=== PATIENT | female | born 1975 | race Caucasian/White ===

== ENCOUNTER 2024-01-19 13:32 | Outpatient (AMB) | payer OTHER, SELFPAY ==
--- NOTE | 2024-01-19 13:34 | MHC.OFFVIS ---
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 Pt reports she developed migraine after she had a bad case of Covid-19 infection 3 years ago. She did not have hosp eval, but feels she should have. At this time, she also had a psychiatric breakdown w/ marked depression and SI. States mood is now stable on current tx- f/b psych and therapist. States prio to this time, she was healthy without mental health symptoms, and was not regularly taking any medications. She has had migraines since. PMH and ROS are notable for:? Neuro: Balance has anh worse since Covid infection 3 yrs ago Musculoskeletal disorders or injury: Cramps: has bad foot cramps at rest/night in the last few weeks. Denies usual neck or back pain. 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 Resp: Bedtime scratchy cough in last 1-2 months- lasts 5-10 minutes. Does vape. History of syncope- passed out a 2-3 times a few months ago- thinks was d/t her meds and getting up to quickly GI d/o: Constipation which she attributes to her meds. Uses dulculx prn. 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 Pertinent denials include: History of concussion/head injury, CV disease, Clotting or hematology d/o, Endocrine d/o, metabolic d/o, History of seizure or drop attacks Family history of migraine or other headache disorder Lifestyle considerations: Sleep routine: Usual bedtime: 9pm and wake-up time: 9am Sleep difficulties: Uses xanax and trazodone for sleep. was offered ambien but was worried about risk for parasomnias/sleep walking/eating. Caffeine use: 1 strong cups of strong cold brew per day Substance use: Tobacco- vapes, Marijuana- once a month, Alcohol- 2-3 times a week (1-2 drinks) when out to dinner. 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 Family planning: none Headache questionnaire:? Previous work-up: none Typical headache characteristics: Prodrome symptoms: None Aura: None Pain intensity: severe Location, quality, characteristics: Bilateral, holocranial pounding/pressure pain. Associated symptoms: photophobia, phonophobia, fatigue, cognitive difficulties, activity intolerance. Postdrome: Can last into 2nd day Triggers: hunger, poor sleep, wine. Time of day: morning or middle of the night (if she takes advil instead of Ubrelvy) Duration and Frequency: With Ubrelvy- 1 hour. Without tx- 1/2-2 days. Occurs 1-2 times per month (4 days per month). How does headache impact your life? Has to lay down and cannot do usual activities. Current acute medication use/interventions: Ubrelvy. Current preventative medication use: Bupropion. Non-pharmacological interventions: Ice when more severe. [facility] Medical History (Updated 01/19/24 @ 17:49 by ADRY Thomas) Generalized anxiety disorder Gene mutation Migraine Surgical History Hx of colonoscopy Family History Mother Osteoporosis Father Diabetes Paternal Grandmother Myocardial infarct Paternal Grandfather Myocardial infarct Maternal Grandmother Alzheimer dementia Social History Alcohol intake: current Patient Tobacco Use Status: Current everyday Tobacco user Physical Exam Vital Signs: Last Vital Signs Pulse 81 01/19/24 13:38 BP 106/70 01/19/24 13:38 Pulse Ox 98 01/19/24 13:38 Oxygen Delivery Method Room Air 01/19/24 13:38 BMI result Body Mass Index 20.7 Const Orientation/consciousness: patient oriented x3 Resp Effort & Inspection: normal respiratory effort and able to speak in complete sentences Neuro Other: Good cervical ROM w/o pain. Romberg- sways but does not lose balance- states balance has been worse since the Covid infection 3 yrs ago General: patient oriented x3 Cranial nerves: Yes CN's II-XII intact bilaterally Cognition (Neuro): normal cognition Gait exam (Neuro): Normal gait present Motor exam (neuro): 5/5 motor strength present throughout Deep tendon reflexes (DTR's): Right triceps reflex intensity grade: 2+, Left triceps reflex intensity grade: 2+, Rt Biceps (C5, C6): 2+, Left biceps reflex intensity grade: 2+, Right brachioradialis reflex intensity grade: 2+, Left brachioradialis reflex intensity grade: 2+, Right patellar reflex intensity grade: 2+ and Left patellar reflex intensity grade: 2+ Coordination: [id number] test normal and tandem gait normal Pupils: Normal pupillary reactivity/response: bilateral Psych Appearance: grossly normal Mental Status: mental status grossly normal Speech and movement: Normal speech and movement present Affect: normal affect Attitude: cooperative Thought process: Normal thought process present Assessment & Plan Assessment & Plan (1) Post-COVID chronic headache: Code(s): R51.9 - Headache, unspecified; U09.9 - Post COVID-19 condition, unspecified; G89.29 - Other chronic pain Category: Medical (2) Dizziness: Comment: balance difficulties Code(s): R42 - Dizziness and giddiness Category: Medical (3) Migraine without aura: Code(s): G43.009 - Migraine without aura, not intractable, without status migrainosus Category: Medical Plan Pt advised to undergo: Brain MRI w/wo- to assess for secondary etiologies of post-covid 19 headache, dizziness, and marked change in mood s/s. For overall headache management: Optimize good self-care, including but not limited to maintaining a healthy diet, adequate fluid intake, adequate sleep, and engaging in regular physical activity. Track headaches, especially after any treatment regimen changes. For acute headache treatment: Discussed importance of taking acute medications at the first sign of headache, however stressed importance of avoiding acute medication overuse.. Trila Rizatriptan 10mg prn. Continue Ibuprofen prn. Continue Ubrelvy 100mg prn, MR in 2 hrs (max 200mg/day), as pt has previously had good effect from use. May take w/ Rizatriptan or Ibuprofen. Potential adverse effects of triptans, including but not limited to nausea, fatigue, chest tightness/tingling (usually passes within a few minutes), medication overuse headaches. Previous acute migraine medication trials: Sumatriptan- ineffective. Acute migraine medication contraindications: None at this time For headache prevention medication: Preventative medications should be taken routinely as prescribed for best effect, it may take several weeks for full effect to take effect. Start Magnesium 400mg qhs- may help leg cramps as well. Continue Bupropion and lamotrigine- may be helping headache burden. Previous migraine prevention medication trials: None other Migraine prevention medication contraindications: Caution w/ TCAs/SSRIs d/t bipolar d/o. Future considerations- adjusting sleep medications, CBT-insomnia. Follow-up upon review of above and in clinic in 6 months or sooner prn. Orders: Orders MR head/brain wo/w con Today G89.29 - Other chronic pain, R42 - Dizziness and giddiness, R51.9 - Headache, unspecified, U09.9 - Post COVID-19 condition, unspecified Medications: New ubrogepant (Ubrelvy) take at onset of migraine, may repeat in 2hrs (may take w/ Ibuprofen) 50 - 100 mg (0.5 - 1 x 100 mg) PO ONCE 30 days PRN 16 tabs 3RF migraine headache G43.009 - Migraine without aura, not intractable, without status migrainosus rizatriptan max 2 tabs per day or 4 tabs per week 5 - 10 mg (0.5 - 1 x 10 mg) PO Q2H 21 days PRN 12 tabs 3RF migraine headache magnesium oxide may hold for loose stools 400 mg PO BEDTIME 30 days 30 tabs 6RF Coding Level of Care Code New Pt Level 4 (23630) Diagnoses Post-COVID chronic headache R51.9; U09.9; G89.29 Dizziness R42 Migraine without aura G43.009
[2024-01-19 13:38] VITALS: BP 106/70; PULSE 81; O2SAT 98; BMI 20.7
== END 2024-01-19 14:45 | disposition home or self-care (01) ==
PROVIDERS: PCP Internal Medicine; Referring Provider Internal Medicine; Visit Provider Nurse Practitioner Family
DX: R51.9 Headache, unspecified (principal); U09.9 Post COVID-19 condition, unspecified; G89.29 Other chronic pain; R42 Dizziness and giddiness; G43.009 Migraine without aura, not intractable, without status migrainosus
CPT/HCPCS: 99204

== ENCOUNTER → 2024-01-19 13:32 | Outpatient (BNVA) | payer OTHER, SELFPAY | PROVIDERS: PCP Internal Medicine; Visit Provider Nurse Practitioner Family | DX: G43.009 Migraine without aura, not intractable, without status migrainosus (principal); U09.9 Post COVID-19 condition, unspecified; G89.29 Other chronic pain; R42 Dizziness and giddiness | CPT/HCPCS: 99202 ==

== ENCOUNTER 2024-03-12 13:10 | Outpatient (REF) | payer OTHER, SELFPAY ==
--- NOTE | ~2024-03-12 | MR_ITS ---
EXAMINATION: MR BRAIN WITHOUT AND WITH CONTRAST CLINICAL INFORMATION: 48-year-old female, Headache, unspecified; migraines, for a few years. No recent injury. Syncopal episode with more remote head injury 3 times in one year. Symptoms starting after having COVID-19. COMPARISON: None available. TECHNIQUE: Multiplanar, multisequence MRI of the brain was obtained before and after the intravenous administration of 5.5 mL IV Gadavist. Standard sequences were utilized on a 1.5 Laurie Siemens magnet. FINDINGS: -There is no diffusion restriction. -There is no intracranial hemorrhage, acute infarction, mass effect, or edema. -Ventricles, sulci, and cisterns are normal in size and configuration for patient age. No shift of midline. -No abnormal hemosiderin deposition is identified. There are a few scattered punctate and minimally confluent foci of white matter T2 hyperintensity in the periventricular, subcortical, and hemispheric deep white matter, nonspecific. -There is no abnormal intra or extra-axial contrast enhancement. -Midline structures appear normally formed. The pituitary gland appears normal. -Posterior fossa structures appear normal. Cerebellar tonsils are appropriately located. -Major flow voids are preserved within the skull base. -The globes and orbital contents demonstrate no abnormalities. -Paranasal sinuses are clear bilaterally. -Nasal septum is essentially midline without spur. -The mastoids and tympanic cavities are normally aerated. -Extracranial soft tissues demonstrate no abnormalities. -No suspicious bone marrow changes are evident. Moderate degenerative arthritis right TM joint, and mild changes left TM joint. -Atlantoaxial joint is normal. MR/MR head/brain wo/w con IMPRESSION: 1. No evidence of intracranial hemorrhage, acute infarction, mass effect, edema, or abnormal intra or extra-axial enhancement. Normal examination of the brain. 2. Ancillary findings as discussed. Electronically signed by: Nima Moncada MD 04/12/2024 11:17 AM EDT
[2024-03-12] MEDS: gadobutroL 7.5 ML VIAL IVPUSH (13:56)
== END 2024-03-12 13:11 | disposition home or self-care (01) ==
LOC: HO.MRI 13:10
PROVIDERS: PCP Internal Medicine; Visit Provider Nurse Practitioner Family
DX: R51.9 Headache, unspecified (principal); U09.9 Post COVID-19 condition, unspecified; G89.29 Other chronic pain; R42 Dizziness and giddiness
CPT/HCPCS: 70553; A9585

== ENCOUNTER → 2024-03-12 13:15 | Outpatient (BNV) | payer OTHER, SELFPAY | PROVIDERS: PCP Internal Medicine; Visit Provider Radiology Diagnostic Radiology | DX: R51.9 Headache, unspecified (principal) | CPT/HCPCS: 70553 ==

== ENCOUNTER 2024-08-01 13:21 | Outpatient (AMB) | payer OTHER, SELFPAY ==
[2024-08-01 13:25] VITALS: BP 100/60; PULSE 82; O2SAT 97; BMI 19.4
--- NOTE | 2024-08-01 13:25 | A.OFFVIS_ITS ---
Vital Signs 08/01/24 13:25 Height 5 ft 7 in Weight 124 lb BMI 19.4 BP 100/60 Blood Pressure Location Lt brachial Position Sitting Pulse 82 Pulse Source Pulse Oximeter Pulse Oximetry (%) 97 Oxygen Delivery Method Room Air Intake Visit Reasons: 6mo. 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 She stopped drinking in the fall- and since she has been feeling better overall. Pt is currently on doxycycline for right 3rd finger skin infection. Pt reports she is 3 weeks post-op lipoma excision, and she asked that I take a look at it to make sure there are no signs of infection, as it is still quite swollen. Her brain MRI was reassuring, mild nonspecific white matter changes. Incidentally it also showed mild-moderate TMJ degenerative changes. Patient states she was planning to return to her dentist, to have her mouth guard be refitted. She denies current jaw pain. She reports overall, her migraines are stable- typically 1-2 migraine attacks per month, approximately 4 migraine days per month.. However, after she had 2 dental crowns placed, she had an uptick in headaches for 2 weeks afterwards. She states Ubrelvy is still very effective. Though she could not currently exercise much, she continues to be regularly physically active. She continues to be followed by Psychiatry and therapy. She wonders if she needs to continue on her current psychiatric medication regimen. She is doing complementary practices, such as cryotherapy, which she finds to be physically relaxing. 01/19/2024 Initial HPI: Pt reports she developed migraine after she had a bad case of Covid-19 infection 3 years ago. She did not have hosp eval, but feels she should have. At this time, she also had a psychiatric breakdown w/ marked depression and SI. States mood is now stable on current tx- f/b psych and therapist. States prior to this time, she was healthy without mental health symptoms, and was not regularly taking any medications. She has had migraines since. PMH and ROS are notable for:? Neuro: Balance has anh worse since Covid infection 3 yrs ago Musculoskeletal disorders or injury: Cramps: has bad foot cramps at rest/night in the last few weeks. Denies usual neck or back pain. 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 Resp: Bedtime scratchy cough in last 1-2 months- lasts 5-10 minutes. Does vape. History of syncope- passed out a 2-3 times a few months ago- thinks was d/t her meds and getting up to quickly GI d/o: Constipation which she attributes to her meds. Uses dulculx prn. 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 Pertinent denials include: History of concussion/head injury, CV disease, Clotting or hematology d/o, Endocrine d/o, metabolic d/o, History of seizure or drop attacks Family history of migraine or other headache disorder Lifestyle considerations: Sleep routine: Usual bedtime: 9pm and wake-up time: 9am Sleep difficulties: Uses xanax and trazodone for sleep. was offered ambien but was worried about risk for parasomnias/sleep walking/eating. Caffeine use: 1 strong cups of strong cold brew per day Substance use: Tobacco- vapes, Marijuana- once a month, Alcohol- 2-3 times a week (1-2 drinks) when out to dinner. 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 Family planning: none Headache questionnaire:? Previous work-up: none Typical headache characteristics: Prodrome symptoms: None Aura: None Pain intensity: severe Location, quality, characteristics: Bilateral, holocranial pounding/pressure pain. Associated symptoms: photophobia, phonophobia, fatigue, cognitive difficulties, activity intolerance. Postdrome: Can last into 2nd day Triggers: hunger, poor sleep, wine. Time of day: morning or middle of the night (if she takes advil instead of Ubrelvy) Duration and Frequency: With Ubrelvy- 1 hour. Without tx- 1/2-2 days. Occurs 1-2 times per month (4 days per month). How does headache impact your life? Has to lay down and cannot do usual activities. Current acute medication use/interventions: Ubrelvy. Current preventative medication use: Bupropion. Non-pharmacological interventions: Ice when more severe. [facility] Medical History (Updated 01/19/24 @ 17:49 by ADRY Thomas) Generalized anxiety disorder Gene mutation Migraine Surgical History (Updated 08/01/24 @ 13:40 by Anahy Alcantara CMA) History of surgery on arm Hx of colonoscopy Family History Mother Osteoporosis Father Diabetes Paternal Grandmother Myocardial infarct Paternal Grandfather Myocardial infarct Maternal Grandmother Alzheimer dementia Social History Alcohol intake: current Patient Tobacco Use Status: Current everyday Tobacco user Physical Exam Vital Signs: Last Vital Signs Pulse 82 08/01/24 13:25 BP 100/60 08/01/24 13:25 Pulse Ox 97 08/01/24 13:25 Oxygen Delivery Method Room Air 08/01/24 13:25 BMI result Body Mass Index 19.4 Const Orientation/consciousness: patient oriented x3 Resp Effort & Inspection: normal respiratory effort and able to speak in complete sentences Neuro Other: Right upper outer arm, well-approximated surgical incision. Areas swollen and ecchymotic without erythema, induration, warmth, exudate. General: patient oriented x3 Cranial nerves: Yes CN's II-XII intact bilaterally Cognition (Neuro): normal cognition Gait exam (Neuro): Normal gait present Motor exam (neuro): 5/5 motor strength present throughout Psych Appearance: grossly normal Mental Status: mental status grossly normal Speech and movement: Normal speech and movement present Affect: normal affect Assessment & Plan Assessment & Plan (1) Post-COVID chronic headache: Code(s): R51.9 - Headache, unspecified; U09.9 - Post COVID-19 condition, unspecified; G89.29 - Other chronic pain Category: Medical (2) Dizziness: Comment: balance difficulties Code(s): R42 - Dizziness and giddiness Category: Medical (3) Migraine without aura: Code(s): G43.009 - Migraine without aura, not intractable, without status migrainosus Category: Medical Plan Reviewed 03/12/2024 Brain MRI w/wo- Unremarkable with a few nonspecific few scattered punctate and minimally confluent foci of white matter T2 hyper intensity in the periventricular, subcortical, and hemispheric deep white matter, nonspecific, Moderate degenerative arthritis right TM joint, and mild changes left TM joint. Concur with mouth guard refitting. 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 For overall headache management: * Optimize good self-care, including but not limited to maintaining a healthy diet, adequate fluid intake, adequate sleep, and engaging in regular physical activity. * Track headaches. For acute headache treatment: Hold Rizatriptan 10mg prn- ? ineffective. Continue Ibuprofen prn. Continue Ubrelvy 100mg prn, MR in 2 hrs (max 200mg/day), as pt has previously had good effect from use. May take w/ Rizatriptan or Ibuprofen. Previous acute migraine medication trials: Sumatriptan- ineffective. Acute migraine medication contraindications: None at this time For headache prevention medication: Continue Magnesium 400mg qhs- may help leg cramps as well. Continue Bupropion and lamotrigine- may be helping headache burden. Previous migraine prevention medication trials: None other Migraine prevention medication contraindications: Caution w/ TCAs/SSRIs d/t bipolar d/o. Future considerations- adjusting sleep medications, CBT-insomnia. Pt to follow-up in 6 months or sooner prn. Coding Level of Care Code Est Pt Level 4 (03132) Diagnoses Post-COVID chronic headache R51.9; U09.9; G89.29 Dizziness R42 Migraine without aura G43.009
--- OUTSIDE RECORDS SUMMARY | 2024-08-01 14:15 | XMS_ITS | Clinical Summary ---
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 Name Role Phone Unavailable Primary Care Provider Unavailabl e Allergies No known active allergies Medications No known medications Immunizations Name Administration Dates Next Due Influenza, injectable, MDCK, quad, preservative free 03/04/2020 Social History Tobacco Use Types Packs/Day Years Used Date Smoking Tobacco: Never Smokeless Tobacco: Never Alcohol Use Standard Drinks/Week Comments Yes 0 (1 standard drink = 0.6 oz pur e alcohol) daily 4+ Comments Unknown Sex and Gender Information Value Date Recorded Sex Assigned at Not on file Legal Sex Female 6:44 PM EDT Gender Identity Not on file Sexual Orientation Not on file Last Filed Vital Signs Vital Sign Reading Time Taken Comments Blood Pressure 126/79 05/03/2020 6:30 AM EST Pulse 88 05/03/2020 6:30 AM EST Temperature 36.3 ??C (97.4 ??F) 05/02/2020 8:07 PM ES T Respiratory Rate 16 05/03/2020 6:30 AM EST Oxygen Saturation 99% 05/03/2020 6:30 AM EST Inhaled Oxygen Concentration - - Weight 61.3 kg (135 lb 2.3 oz) 05/02/2020 8:07 P M EST Height 170.2 cm (5' 7 ) 05/02/2020 8:07 PM EST Body Mass Index 21.17 05/02/2020 8:07 PM EST Plan of Treatment Health Maintenance Due Date Last Done Comments HIV screening 1988 Hepatitis C screening 1993 Cervical cancer screening 1996 Lipid disorder screening 2015 Colon cancer screening, Colonoscopy 2020 Diabetes screening 2020 Influenza vaccine 01/11/2024 03/04/2020 Covid-19 vaccine series ( - 2023-25 season) 2024 Tetanus adult (Td q 10,TDAP once) 03/07/2028 018 RSV Discussion (1 - 1-dose 7 5+ series) 2050 Meningococcal Vaccine Aged Out No sundeep zo eligible based on patient's age to complete this topic Pneumococcal Vaccine (2 - 49 years) Aged Out No longer eligible b ased on patient's age to complete this topic Insurance [id number] MEDICAID [id number] MEDICAID [id number] MEDICAID
--- OUTSIDE RECORDS SUMMARY | 2024-08-01 14:15 | XMS_ITS | Encounter Summary ---
Author Organization [facility] Address [address] [place] [address] Care Team Providers Care Fire Medic Name Role Phone Sofie Carr MD Primary Care Pr ovider Reason for Referral * Imaging (Routine) - Closed Specialty Diagnoses / Procedures Referred By Ирина bush Referred To Contact Radiology Diagnoses At high risk for breast cancer Procedures MR Breast wo and w Contrast bilat Sofie Carr MD [address] [place] [address] Phone: tel: fax: Radiology Department - [address] [address] Phone: tel: fax: Referral ID Status Reason Start Date Expiration Date Visits Re quested Visits Authorized [id number] Closed 06/24/2024 09/03/2024 1 1 Reason for Visit * Imaging (Routine) - Closed Specialty Diagnoses / Procedures Referred By Ирина bush Referred To Contact Radiology Diagnoses At high risk for breast cancer Procedures MR Breast wo and w Contrast Sofie Vuong MD [address] [place] [address] Phone: tel: fax: Radiology Department - [address] Phone: tel: fax: Referral ID Status Reason Start Date Expiration Date Visits Re quested Visits Authorized [id number] Closed 06/24/2024 09/03/2024 1 1 Encounter Details Date Type Department Care Team (Latest Contact Info) Description 07/05/2024 1:44 PM EST - 07/05/2024 11:59 PM EST Hospital Encounter Radiology Department - [address] [phone] At high risk for breast cancer Discharge Disposition: Home or Self Care Social History Tobacco Use Types Packs/Day Years Used Date Smoking Tobacco: Former Cigarettes 1 30 1 992 - 2021 Smokeless Tobacco: Never Alcohol Use Standard Drinks/Week Comments Not Currently 0 (1 standard drink = 0.6 oz pur e alcohol) Housing Instability Answer Date Recorde d Are you worried that in the next 2 months you may not have stable housing? No 06/24/2024 Food Access & Nutrition Answer Date Rec orded Do you have access to a vari ety of food including fruits and vegetables? Yes 06/24/2024 Health Literacy Answer Date Recorded How often do you need to hav e someone help you when you read instructions, pamphlets, or other written material from your doctor or pharmacy? Never 06/24/2024 Caregiver: How often do you need to have someone help you when you read instructions, pamphlets, or other written material from your doctor or pharmacy? Not on file 06/24/2024 Financial Risk Answer Date Recorded How hard is it for you to pa y for the very basics like food, housing, medical care, and air conditioning / heating? Patient declined 06/24/2024 Transportation Answer Date Recorded Has the lack of transportati on kept you from meetings, work, or from getting things needed for daily living? No Has the lack of transportati on kept you from medical appointments or from getting medications? No 06/24/2024 Social Isolation Answer Date Recorded How often do you feel lonely or isolated from th ose around you? Never 06/24/2024 Food Risk Answer Date Recorded Within the past 12 months we worried whether our food would run out before we got money to buy more. Never true 06/24/2024 Within the past 12 months th e food we bought just didn't last and we didn't have money to get more. Never true 06/24/2024 Dependent Care Answer Date Recorded Do you need help finding or paying for care for your loved ones. For example, vocational childcare teacher or elderly care for an older adult? No 06/24/2024 Education Answer Date Recorded Do you think completing more education or training, like finishing a GED, going to college, or learning a trade, would be helpful for you? No 06/24/2024 Employment and Income Answer Date Recor ded During the last four weeks, have you been actively looking for work? No 06/24/2024 Living Situation Answer Date Recorded What is your living situation? 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 04/02/2024 ALPRAZolam (XANAX) 0.5 mg tablet Take 1 tablet by mouth daily as needed for Anxiety for up to 28 days. 10/27/2020 buPROPion XL (WELLBUTRIN XL) 150 mg 24 hr tablet Take 1 Tablet by mouth every morning. cariprazine (Vraylar) 3 mg capsule TAKE ONE CAP BY MOUTH EVERY MORNING 02/11/2021 escitalopram (LEXAPRO) 10 mg tablet Take 1 Tablet by mouth daily. lamoTRIgine (LaMICtal) 100 mg tablet TAKE ONE TAB BY MOUTH EVERY MORNING AFTER 50 MG DOSING IS COMPLETE (DAY 29) 09/18/2020 magnesium oxide (MAG-OX) 400 mg (241.3 elemental magnesium) tablet TAKE 1 TABLET BY MOUTH AT BEDTIME MAY HOLD FOR LOOSE STOOLS 04/19/2024 Perdiem Overnight Relief 15 mg tablet TAKE 1 TABLET BY MOUTH EVERY DAY *NOT COV'D* 04/03/2024 rizatriptan (MAXALT) 10 mg tablet PLEASE SEE ATTACHED FOR DETAILED DIRECTIONS 01/19/2024 traZODone (DESYREL) 300 mg tablet Take 1 Tablet by mouth at bedtime. - Oral ubrogepant (UBRELVY) 100 mg tablet Take 1 Tablet by mouth as needed (migraine). May repeat x one 07/20/2023 documented as of this encounter Discharge Disposition Disposition Code Departure Means Destination Home or Self Care documented in this encounter Plan of Treatment Upcoming Encounters Date Type Department Care Team (Late st Contact Info) Description 08/07/2024 2:30 PM EST Office Visit General Surgery [facility] [address] [phone] Kamlesh Fernandez, DO [address] [address] 09/02/2024 11:00 AM EDT Office Visit [facility] Hematology Oncology [address] [place] [phone] Jamal Kruger MD [address] [place] [address] 12/17/2024 10:45 AM EDT Office Visit Adult Medicine [address] [phone] Laura Gilbert PA [address] [place] [address] documented as of this encounter Procedures Procedure Name Priority Date/Time Associated Diagnosis Comments MR BREAST WO AND W CONTRAST BILAT Routine 07/05/2024 2:39 PM EST At high risk for breast cancer documented in this encounter Results * MR Breast wo and w Contrast bilat (07/05/2024 2:39 PM EST) Anatomical Region Laterality Modality Breast Bilateral Magnetic Resonan ce 07/05/2024 6:34 PM EST Impressions 07/07/2024 3:06 PM EST Limited exam as described above. ??No MRI evidence of breast malignancy. BI-RADS CATEGORY: 2 - BENIGN RECOMMENDATION: MRI of bilateral breasts is recommended in 1 year. POS -[id number] -------- FINAL REPORT -------- Dictated By: Jessenia Murphy Dictated Date: 07/05/2024 18:34 ET Assigned Physician: Jessenia Murphy Reviewed and Electronically Signed By: Jessenia Murphy Signed Date: 07/07/2024 15:06 ET Workstation ID: [id number] Transcribed By: Self Edit Transcribed Date: 07/05/2024 19:03 ET Narrative 07/07/2024 3:06 PM EST EXAM: MRI breast HISTORY: Family history of breast cancer. ??Genetic predisposition-BRCA. COMPARISON: None CORRELATION: ??Mammography as recent as 05/02/2024 TECHNIQUE: Exam performed on a 1.5 Laurie high-field MRI scanner. ?? Multiplanar multiphasic MRI performed without and with contrast using department protocol. ??Exam is reviewed on CAD workstation with enhancement curves plotting, 3-D multi- planar reformatted and angiographic MIP images obtained. ??20 cc of Dotarem administered intravenously. Exam is reviewed on CAD workstation with enhancement curves plotting, 3-D multi-planar reformatted and angiographic MIP images obtained. FINDINGS: Signal artifacts in the bilateral areolar regions affecting the anterior breasts due to nipple jewelry which the patient was unable to remove for imaging. ??The signal artifacts limit the exam. Breast parenchyma is extremely dense with mild background parenchymal enhancement. RIGHT BREAST: ??No morphologically or kinetically suspicious finding. ??Few cysts with the largest measuring 1.2 cm in the posterior lower breast. LEFT BREAST: ??No morphologically or kinetically suspicious finding. ??Few subcentimeter cysts. OTHER: ??No lymphadenopathy identified in the partially imaged axillary regions. Procedure Note Jessenia Murphy MD - 07/07/2024 EXAM: MRI breast HISTORY: Family history of breast cancer. Genetic predisposition-BRCA. COMPARISON: None CORRELATION: Mammography as recent as 05/02/2024 TECHNIQUE: Exam performed on a 1.5 Laurie high-field MRI scanner.Multiplanar multiphasic MRI performed without and with contrast usingdepartment protocol. Exam is reviewed on CAD workstation with enhancementcurves plotting, 3-D multi-planar reformatted and angiographic MIP imagesobtained. 20 cc of Dotarem administered intravenously. Exam is reviewed on CAD workstation with enhancement curves plotting, [id number] reformatted and angiographic MIP images obtained. FINDINGS: Signal artifacts in the bilateral areolar regions affecting the anteriorbreasts due to nipple jewelry which the patient was unable to remove forimaging. The signal artifacts limit the exam. Breast parenchyma is extremely dense with mild background parenchymalenhancement. RIGHT BREAST: No morphologically or kinetically suspicious finding. Fewcysts with the largest measuring 1.2 cm in the posterior lower breast. LEFT BREAST: No morphologically or kinetically suspicious finding. Fewsubcentimeter cysts. OTHER: No lymphadenopathy identified in the partially imaged axillaryregions. IMPRESSION: Limited exam as described above. No MRI evidence of breast malignancy. BI-RADS CATEGORY: 2 - BENIGN RECOMMENDATION: MRI of bilateral breasts is recommended in 1 year. POS -[id number] -------- FINAL REPORT -------- Dictated By: Jessenia Murphy Dictated Date: 07/05/2024 18:34 ET Assigned Physician: Jessenia Murphy Reviewed and Electronically Signed By: Jessenia Murphy Signed Date: 07/07/2024 15:06 ET Workstation ID: [id number] Transcribed By: Self Edit Transcribed Date: 07/05/2024 19:03 ET Sofie Carr MD IMG MRI PROCEDUR ES Final Result documented in this encounter Visit Diagnoses Diagnosis At high risk for breast cancer documented in this encounter Administered Medications Inactive Administered Medications - up to 3 most recent administrations Medication Order MAR Action Action Date Dose Rate Site gadoterate meglumine (CLARISCAN, DOTAREM) injection 20 mL 20 mL, intravenous, Once in imaging, Starting on Mon07/05/24 at 1439, For 1 dose Given 07/05/2024 2:39 PM EST 20 mL documented in this encounter Orders Medications Ordered That Konstantin ht Not Have Been Administered Count Last Ordered Date First Ordered Date gadoterate meglumine (SAAD CAN, DOTAREM) injection 20 mL 1 07/05/2024 documented in this encounter Additional Health Concerns Assessment Noted Time PHQ-9 Depression Total Score: 2 06/24/19 3:00 PM EST documented as of this encounter Care Teams Fire Medic Relationship Specialty Start Date End Date Sofie Carr MD [address] [place] [address] PCP - General Internal Medicine 06/24/24 documented as of this encounter
--- OUTSIDE RECORDS SUMMARY | 2024-08-01 14:15 | XMS_ITS | Encounter Summary ---
Author Organization [facility] Address [address] [place] [address] Care Team Providers Care Mixed Crop Farmer Name Role Phone Sofie Carr MD Primary Care Pr ovider Reason for Visit * Consultation (Routine) - Closed Specialty Diagnoses / Procedures Referred By Ирина bush Referred To Contact General Surgery Diagnoses Lipoma of right upper extremity Sofie Carr MD [address] [place] [address] Phone: tel: fax: General [address] [address] Phone: tel: fax: Referral ID Status Reason Start Date Expiration Date V isits Requested Visits Authorized [id number] Closed Specialty Services Required 06/24/2024 06/24/2025 1 1 Encounter Details Date Type Department Care Team ([facility] st Contact Info) Description 07/04/2024 2:45 PM EST Consult General Surgery [address] [phone] Kamlesh Fernandez D, DO [address] [place], [place] [phone] Lipoma of right upper extremity (Primary Dx) Social History Tobacco Use Types Packs/Day Years Used Date Smoking Tobacco: Former Cigarettes 1 30 1 - 2021 Smokeless Tobacco: Never Alcohol Use [...] care for your loved ones. For example, child care director or elderly care for an older adult? [...] on file documented as of this encounter Last Filed Vital Signs Vital Sign Reading Time Taken Comments Blood Pressure 110/68 07/04/2024 2:59 PM EST Pulse 84 07/04/2024 2:59 PM EST Temperature - - Respiratory Rate - - Oxygen Saturation - - Inhaled Oxygen Concentration - - Weight 54.7 kg (120 lb 9.6 oz) 07/04/2024 2:59 P M EST Height 171.5 cm (5' 7.5 ) 07/04/2024 2:59 PM EST Body Mass Index 18.61 07/04/2024 2:59 PM EST documented in this encounter Progress Notes * Kamlesh Fernandez, DO - 07/04/2024 2:45 PM EST Images from the original note were not included. REFERRING PROVIDER: Sofie Carr MD REASON FOR VISIT: Right uppoer extremity lipoma HPI: This is a very pleasant 49 y.o.-year-old female past medical history significant for generalized anxiety disorder, bipolar, migraines who presents for consultation regarding a soft tissue mass of theright upper extremity. Patient reports that she has had it for a number of years. She denies any blood thinners she is not a smoker. ROS The following symptom list was reviewed with the patient: GENERAL: fevers, chills, sweats, change in weight, fatigue or malaise HEENT: changes in hearing or vision, nasal problems NECK: lumps, goiter, or significant neck swelling RESPIRATORY: cough, wheezing, shortness of breath, pleuritic chest pain CARDIOVASCULAR: chest pain, leg swelling or palpitations GI: abdominal discomfort, blood in stools or black stools : dysuria, frequency or incontinence MUSCULOSKELETAL: joint pain or swelling, back pain, or muscle pain SKIN: lesions, rash or itching PSYCH: sleep disturbance or depression HEMATOLOGY: prolonged bleeding, easy bruisability or swollen nodes ENDOCRINE: cold or heat intolerance, polyuria, polydipsia or goiter NEURO: persistent headache, syncope, seizures, weakness or numbness The patient reported the following as positive: As per HPI; right upper extremity lipoma PAST MEDICAL HISTORY: I personally reviewed the following past medical history with the patient and updated the records as appropriate. Patient Active Problem List Diagnosis Date Noted Current every day nicotine vaping 06/24/2024 Lipoma of right upper extremity 06/24/2024 Underweight (BMI < 18.5) 06/24/2024 Colon cancer high risk 06/24/2024 ADD (attention deficit disorder) Gene mutation 04/26/2024 Dysplastic nevus 03/18/2024 Bipolar affective disorder in remission (CMS/HCC) 05/08/2021 Macrocytosis without anemia 04/19/2021 Migraine 02/02/2021 Generalized anxiety disorder 07/07/2020 PAST SURGICAL HISTORY: I personally reviewed the following past surgical history with the patient and updated the records as appropriate. Past Surgical History: Procedure Laterality Date COLONOSCOPY PROCEDURE: HISTORICAL COLONOSCOPY COLONOSCOPY PROCEDURE: HISTORICAL COLONOSCOPY; COMMENT: Performed on March 26, 2021 OTHER SURGICAL HISTORY PROCEDURE: DENIES PREVIOUS SURGERY OTHER SURGICAL HISTORY Right 09/30/2020 PROCEDURE: SKIN TISSUE BIOPSY [facility] PATHOLOGY EXAM; COMMENT: excision with neg margins - dysplasticnevus right lower back SOCIAL HISTORY: I personally reviewed the following social history with the patient and updated the records as appropriate. Social History Tobacco Use Smoking status: Former Current packs/day: 0.00 Average packs/day: 1 pack/day for 30.0 years (30.0 ttl pk-yrs) Types: Cigarettes Start date: 1991 Quit date: 2021 Years since quittin.0 Smokeless tobacco: Never Substance Use Topics Alcohol use: Not Currently FAMILY HISTORY: I personally reviewed the following family medical history with the patient and updated the recordsas appropriate. Family History Problem Relation Name Age of Onset Osteoporosis Mother Diabetes Father Alzheimer's disease Maternal Grandmother Heart attack Paternal Grandmother Heart attack Paternal Grandfather Breast cancer Aunt Breast cancer Other mat aunt at age 59 ACTIVE MEDICATIONS: Medication list was reviewed/updated with the patient. No outpatient medications have been marked as taking for the 07/04/24 encounter (Consult) with Kamlesh Fernandez DO. ALLERGIES: Allergies Allergen Reactions Other Seasonal Allergies PHYSICAL EXAM: Visit Vitals BP 110/68 Pulse 84 Ht 1.715 m (67.5 ) Wt 54.7 kg (120 lb 9.6 oz) BMI 18.61 kg/m?? OB Status Having periods Smoking Status Former BSA 1.64 m?? GENERAL: Awake, alert, and in no acute distress. HEAD: Normocephalic, atraumatic. EYES: Pupils equal and round. Anicteric sclera. Conjunctiva normal. NECK: Thyroid midline and without goiter, nodule, tenderness, or mass. No appreciable adenopathy. CHEST: Non-tender. LUNGS: Clear to auscultation bilaterally without wheezing, rales, or rhonchi. CARDIAC: RRR, normal S1/S2, no appreciable murmur. ABDOMEN: Soft, non-tender, non-distended. No appreciable mass. No organomegaly. No ventral or umbilical hernia noted. EXTREMITIES: Right arm lipoma, 2 and half centimeters mobile nontender to palpation pretibial edema. BACK: Grossly normal range of motion. SKIN: Warm, no lesion or rash noted on visible skin. NEURO: Alert and oriented, appropriate. Motor and sensory grossly intact. LABS: No pertinent labs. IMAGING: ent imaging. ................................................................................ ............................................................. ASSESSMENT & PLAN: 1. Lipoma of right upper extremity Patient is a small right upper extremity lipoma she wishes to have removed. She reports that it does bother her. I explained excision of lipoma as well as risk procedure which include bleeding, infection, damage surrounding structures need for the procedure she understands these risks wished beforesurgery. It was a pleasure seeing Lidya Abarca at the Surgery [facility] today. The patient has been instructed to call with any additional questions or concerns. Thank you for this referral. Dr. Kamlesh Fernandez DO General Surgery [facility] A Member of [facility] W [phone] F [phone] [address] [place] [address] [email or web address] No ref. provider found documented in this encounter Plan of Treatment Upcoming Encounters Date Type Department Care Team ([facility] st Contact Info) Description 08/07/2024 2:30 PM EST Office Visit General Surgery [facility] [address] [phone] Kamlesh Fernandez DO [address] [address] 09/02/2024 11:00 AM EDT Office Visit [facility] Hematology Oncology [address] [place] [phone] Jamal Kruger MD [address] [place] [address] 12/17/2024 10:45 AM EDT Office Visit Adult Medicine [address] [phone] Laura Gilbert PA [address] [place] [address] documented as of this encounter Visit Diagnoses Diagnosis Lipoma of right upper extremity- Primary documented in this encounter Orders Outpatient Referral Count Last Ordered Date Fir st Ordered Date AMB REFERRAL TO GENERAL SURGERY 1 5 documented in this encounter Additional Health Concerns Assessment Noted Time PHQ-9 Depression Total Score: 2 06/24/19 25 3:00 PM EST documented as of this encounter Care Teams Mixed Crop Farmer Relationship Specialty Start Date End Date Sofie Carr MD [address] [place] [address] PCP - General Internal Medicine 06/24/24 documented as of this encounter
--- OUTSIDE RECORDS SUMMARY | 2024-08-01 14:15 | XMS_ITS | Encounter Summary ---
Author Organization [facility] Address [address] [place] [address] Care Team Providers Care Saw Handle Assembler Name Role Phone Sofie Carr MD Primary Care Pr ovider Reason for Visit * Reason Onset Date Comments Prior Authorization 07/17/2024 07/18/24 Dr. Power Fernandez Encounter Details Date Type Department Care Team (Late st Contact Info) Description 07/17/2024 Telephone General Surgery - [place] [address] [facility] [address] [place] [phone] Kamlesh Fernandez, DO [address] [place] [address] Prior Authorization (07/18/24 Dr. Kamlesh Fernandez) Social History Tobacco Use Types Packs/Day Years [...] on file documented as of this encounter Progress Notes * Ivet Doan - 07/17/2024 9:23 AM EST She is having in-office surgery with Dr. Fernandez on 07/18/14. She has [employer] for insurance. I went online and no authorization is required. documented in this encounter Plan of Treatment Upcoming Encounters Date Type Department Care Team (Late st Contact Info) Description 08/07/2024 2:30 PM EST Office Visit General Surgery [facility] [address] [phone] Kamlesh Fernandez, [address] [address] 09/02/2024 11:00 AM EDT Office Visit [facility] Hematology Oncology [address] [place] [address] Jamal Kruger MD [address] [place] [address] 12/17/2024 10:45 AM EDT Office Visit Adult Medicine [address] [phone] Laura Gilbert PA [address] [place] [address] documented as of this encounter Visit Diagnoses Not on filedocumented in this encounter Additional Health Concerns Assessment Noted Time PHQ-9 Depression Total Score: 2 06/24/19 3:00 PM EST documented as of this encounter Care Teams Saw Handle Assembler Relationship Specialty Start Date End Date Sofie Carr MD [address] [place] [address] PCP - General Internal Medicine 06/24/24 documented as of this encounter
--- OUTSIDE RECORDS SUMMARY | 2024-08-01 14:16 | XMS_ITS | Encounter Summary ---
Author Organization [facility] Address [address] [place] [address] Care Team Providers Care Electrical Controls Technician Name Role Phone Sofie Carr MD Primary Care Pr ovider Reason for Visit * Reason Comments Procedure RUE lipoma excision Encounter Details Date Type Department Care Team (Latest Contact Info) Description 07/18/2024 1:30 PM EST Procedure visit General Surgery - [place] [address] [facility] [address] [place] [phone] Kamlesh Fernandez, DO [address] [facility] [address] [place] [address] Lipoma of right upper extremity (Primary Dx) Social History Tobacco Use Types Packs/Day Years Used Date Smoking Tobacco: Every Day Cigarettes 07 11 Started: 1991; Last attempted to quit: 2021 Smokeless Tobacco: Never Tobacco Cessation:Ready to Q uit: Not Asked; Counseling Given: Not Answered Alcohol Use Standard Drinks/Week Comments Not Currently [...] for your loved ones. For example, child health associate or elderly care for an older adult? [...] Sign Reading Time Taken Comments Blood Pressure 116/70 07/18/2024 1:23 PM EST Pulse 69 07/18/2024 1:23 PM EST Temperature 36.9 ??C (98.4 ??F) 07/18/2024 1:23 PM ES T Respiratory Rate - - Oxygen Saturation - - Inhaled Oxygen Concentration - - Weight 53.5 kg (118 lb) 07/18/2024 1:23 PM EST Height 170.2 cm (5' 7 ) 07/18/2024 1:23 PM EST Body Mass Index 18.48 07/18/2024 1:23 PM EST documented in this encounter Plan of Treatment Upcoming Encounters Date Type Department Care Team (Late st Contact Info) Description 08/07/2024 2:30 PM EST Office Visit General Surgery [facility] [address] [facility] [address] [place] [phone] Kamlesh Fernandez, [address] [facility] [address] [place] [phone] 09/02/2024 11:00 AM EDT Office Visit [facility] Hematology Oncology [address] [place] [phone] Jamal Kruger MD [address] [place] [address] 12/17/2024 10:45 AM EDT Office Visit Adult Medicine [address] [phone] Laura Gilbert PA [address] [place] [address] documented as of this encounter Procedures Procedure Name Priority Date/Time Associated Diagnosis Comments TISSUE EXAM Routine 07/18/2024 1:48 PM EST Lipoma of right upper extremity documented in this encounter Results * Tissue exam (07/18/2024 1:48 PM EST) Final Diagnosis Soft tissue, right upper arm-excision: -LIPOMA 07/22/2024 1:45 PM EST [facility] Clinical Information Lipoma right upper extremity D17.21 Right upper extremity lipoma 07/22/2024 1:45 PM EST [facility] Gross Description A. Arm, Right, upper excision: Labeled arm R . Received in formalin is a 4.2 x 2.6 x 1.3 cm focally disrupted yellow lobular portion of adipose tissue. The cut surfaces are comprised of glistening yellow lobular adipose tissue with no areas of hemorrhage or necrosis. Billet Header sections are submitted in one cassette, four pieces. SHASHI 07/22/2024 1:45 PM [facility] Disclaimer Unless otherwise specified, all tissue is 10% NB formalin fixed and paraffin embedded. 07/22/2024 1:45 PM EST [facility] Tissue Structure of right upper limb / Unknown Non-blood Collection / Unknown 07/18/2024 1:48 PM EST 07/18/2024 1:50 PM EST Comment:Right upper extremit y lipoma us Kamlesh Fernandez DO LAB PATHOLOGY ORDERABLES Final Result [facility] [address] [place] [address], documented in this encounter Visit Diagnoses Diagnosis Lipoma of right upper extremity- Primary documented in this encounter Additional Health Concerns Assessment Noted Time PHQ-9 Depression Total Score: 2 06/24/19 25 3:00 PM EST documented as of this encounter Care Teams Electrical Controls Technician Relationship Specialty Start Date End Date Sofie Carr MD [address] [place] [id number] PCP - General Internal Medicine 06/24/24 documented as of this encounter
--- OUTSIDE RECORDS SUMMARY | 2024-08-01 14:16 | XMS_ITS | Clinical Summary ---
Author Organization [facility] [address] [facility] lding Address [address] [place] [address] Phone Care Team Providers Care Retail Field Supervisor Name Role Phone Sofie Carr MD Primary Care Pr ovider Allergies Active Allergy Reactions Criticality Noted Date Comments Other 10/21/2020 Seasonal Allergies Medications ALPRAZolam (XANAX) 0.5 mg tablet Take 1 tablet by mouth daily as needed for Anxiety for up to 28 days. 1 Active buPROPion XL (WELLBUTRIN XL) 150 mg 24 hr tablet Take 1 Tablet by mouth every morning. Active escitalopram (LEXAPRO) 10 mg tablet Take 1 Tablet by mouth daily. Active lamoTRIgine (LaMICtal) 100 mg tablet TAKE ONE TAB BY MOUTH EVERY MORNING AFTER 50 MG DOSING IS COMPLETE (DAY 29) 1 Active traZODone (DESYREL) 300 mg tablet Take 1 Tablet by mouth at bedtime. - Oral Active ubrogepant (UBRELVY) 100 mg tablet Take 1 Tablet by mouth as needed (migraine). May repeat x one 4 Active cariprazine (Vraylar) 3 mg capsule TAKE ONE CAP BY MOUTH EVERY MORNING 1 Active Adderall XR 20 mg 24 hr capsule Take 1 capsule (20 mg total) by mouth 1 (one) time each day. 4 Active rizatriptan (MAXALT) 10 mg tablet PLEASE SEE ATTACHED FOR DETAILED DIRECTIONS 4 Active magnesium oxide (MAG-OX) 400 mg (241.3 elemental magnesium) tablet TAKE 1 TABLET BY MOUTH AT BEDTIME MAY HOLD FOR LOOSE STOOLS 4 Active Perdiem Overnight Relief 15 mg tablet TAKE 1 TABLET BY MOUTH EVERY DAY *NOT COV'D* 4 Active Active Problems Problem Noted Date Diagnosed Date Current every day nicotine vaping 06/24/2024 Assessment & Plan (06/24/2024 4:44 PM EST): Cessation counseling provided Lipoma of right upper extremity 06/24/2024 Assessment & Plan (06/24/2024 4:44 PM EST): Orders: Ambulatory referral to General Surgery; Future Underweight (BMI < 18.5) 06/24/2024 Assessment & Plan (06/24/2024 4:44 PM EST): Advised to increase her protein consumption to help build muscle mass Orders: Thyroid stimulating hormone with reflex to free t4 and free t3; Future Colon cancer high risk 06/24/2024 Overview (06/24/2024): She had BRCA testing done in February 2021 which revealed positive moderate risk mutation APC: [id number] which increases her risk for colorectal cancer. Assessment & Plan (06/24/2024 4:44 PM EST): Up to date with colonoscopy Gene mutation 04/26/2024 Overview (06/24/2024): She had BRCA testing done in February 2021 which revealed positive moderate risk mutation APC: [id number] which increases her risk for colorectal cancer. Assessment & Plan (06/24/2024 4:44 PM EST): Dysplastic nevus 03/18/2024 Overview (03/18/2024): Severely Dysplastic nevus Bipolar affective disorder in remission 05/08/20 21 Macrocytosis without anemia 04/19/2021 Migraine 02/02/2021 Overview (04/26/2024): Ubrevly prescribed by psychiatry Ubrevly prescribed by psychiatry Generalized anxiety disorder 07/07/2020 ADD (attention deficit disorder) Overview (06/24/2024): DX:ADD (attention deficit disorder) Resolved Problems Problem Noted Date Diagnosed Date Resolved Date COVID-19 06/25/2020 06/24/2024 Overview (03/18/2024): 06/08/20 Encounters Date Type Department Care Team Description 07/18/2024 1:30 PM EST Procedure visit General Surgery [address] [phone] Kamlesh Fernandez, DO Lipoma of right upper extremity (Primary Dx) 07/17/2024 Telephone General [address] [phone] Kamlesh Fernandez, DO Prior Authorization (07/18/24 Dr. Kamlesh Fernandez) 07/05/2024 1:44 PM EST - 07/05/2024 11:59 PM EST Hospital Encounter Radiology Department - [address] [phone] At high risk for breast cancer Discharge Disposition: Home or Self Care 07/04/2024 2:45 PM EST Consult General Surgery [address] [phone] Kamlesh Fernandez, DO Lipoma of right upper extremity (Primary Dx) 06/24/2024 3:00 PM EST Office Visit Adult Medicine [address] [phone] Sofie Carr MD Annual physical exam (Primary Dx); At high risk for breast cancer; Mass of upper outer quadrant of left breast; Cold intolerance; Raynaud's phenomenon without gangrene; Underweight (BMI < 18.5); Screening for metabolic disorder; Lipoma of right upper extremity; Current every day nicotine vaping; Colon cancer high risk; Gene mutation 05/02/2024 9:37 AM EST - 05/02/2024 11:59 PM [facility] Hospital Encounter [facility] [address] [phone] Encounter for screening mammogram for breast cancer Discharge Disposition: Home or Self Care from Last 3 Months Immunizations Name Administration Dates Next Due Influenza Quadravalent, MDCK , 0.5ml, preservative free (Flucelvax) 6mo and older 04/25/2022 Influenza Quadravalent, MDCK , 0.5ml, with preservative (Flucelvax) 6mo and older 02/20/2023,03/09/2021 Influenza trivalent, with pr eservative (Fluzone; Afluria) 6mo and older 03/04/2020 Moderna (age 6mo & older) Bi valent, COVID-19, 0.5 mL or 0.25 mL dosage 04/25/2022 Moderna SARS-CoV-2 COVID-19, mRNA, LNP-S, preservative free 08/24/2020,07/27/2020 Tdap Tetanus diptheria acell ular pertussis (Boostrix; Adacel) 7yo and older 03/07/2018 Surgical History Surgery Date Site/Laterality Comments OTHER SURGICAL HISTORY PROCEDURE: DENIES PREVIOUS SURGERY OTHER SURGICAL HISTORY 09/30/2020 Right PROCEDURE: SKIN TISSUE BIOPSY SPCMN PATHOLOGY EXAM; COMMENT: excision with neg margins - dysplastic nevus right lower back COLONOSCOPY PROCEDURE: HISTORICAL COLONOSCOPY COLONOSCOPY PROCEDURE: HISTORICAL COLONOSCOPY; COMMENT: Performed on March 26, 2021 Medical History Medical History Date Comments ADD (attention deficit disorder) DX:ADD (attention deficit disorder) Dysplastic nevus DX:Dysplastic n evus Migraine 02/02/2021 DX:Migraine; COM MENT: Ubrevly prescribed by psychiatry Gene mutation DX:Gene mutation Anxiety state DX:Anxiety state Depressive disorder DX:Depressiv e disorder Covid-19 06/25/2020 06/08/20 Family History Medical History Relation Name Comments Breast cancer Aunt Diabetes Father Alzheimer's disease Maternal Grandmother Osteoporosis Mother Breast cancer Other mat aunt at age 59 Heart attack Paternal Grandfather Heart attack Paternal Grandmother Relation Name Status Comments Aunt Alive Brother Alive Father Alive Maternal Grandfather Maternal Grandmother Mother Alive Other mat aunt at age 59 Alive Paternal Grandfather Paternal Grandmother Social History Tobacco Use Types Packs/Day Years Used Date Smoking Tobacco: Every Day Cigarettes 1 30 Started: 1991; Last attempted to quit: 2021 [...] your loved ones. For example, child care sitter or elderly care for an older adult? [...] file Not on file Not on file Obstetrics History Para Term AB IAB SAB Ectopic Multiple Livin g Live Births 0 0 0 1 Last Filed Vital Signs Vital Sign Reading Time Taken Comments Blood Pressure 116/70 07/18/2024 1:23 PM EST Pulse 69 07/18/2024 1:23 PM EST Temperature 36.9 ??C (98.4 ??F) 07/18/2024 1:23 PM ES T Respiratory Rate 17 06/24/2024 3:23 PM EST Oxygen Saturation - - Inhaled Oxygen Concentration - - Weight 53.5 kg (118 lb) 07/18/2024 1:23 PM EST Height 170.2 cm (5' 7 ) 07/18/2024 1:23 PM EST Body Mass Index 18.48 07/18/2024 1:23 PM EST Plan of Treatment Upcoming Encounters Date Type Department Care Team (Late st Contact Info) Description 08/07/2024 2:30 PM EST Office Visit General Surgery - [place] [address] [phone] Kamlesh Fernandez, DO [address] [phone] 09/02/2024 11:00 AM EDT Office Visit [facility] Hematology Oncology [address] [place] [phone] Jamal Kruger MD [address] [place] [address] 12/17/2024 10:45 AM EDT Office Visit Adult Medicine [address] [phone] Laura Gilbert PA [address] [place] [address] Health Maintenance Due Date Last Done Comments Hepatitis B Vaccines (1 of 3 - 19+ 3-dose series) 1994 Pneumococcal Vaccine: Pediatrics (0 to 5 Years) and At-Risk Patients (6 to 64 Years) (1 of 2 - PCV) 1994 Depression Screening 06/24/2025 06/24/2024, 01/08/20 Social Influencers of Health Screening 06/24/2025 06/24/2024 Breast Cancer Screening 05/02/2026 05/02/20 24, 05/01/2023, 04/27/2022, Additional history exists Colorectal Cancer Screening: Colonoscopy 03/12/2027 DTaP,Tdap,and Td Vaccines (2 - Td or Tdap) 03/07/2028 03/07/2018 Cervical Cancer Screening: HPV 04/25/2028 04/25/2023 Cholesterol Screening (Lipid Panel) 06/28/2029 06/28/2024, 07/15/2020 HIV Screening Completed 03/07/2018 Hepatitis C Screening Completed 03/07/2018 COVID-19 Vaccine Completed 04/29/2024, , 04/02/2021, Additional history exists Influenza Vaccine Completed 04/29/2024, , 04/25/2022, Additional history exists HIB Vaccines Aged Out No longer eligi ble based on patient's age to complete this topic HPV Vaccines Aged Out No longer eligi ble based on patient's age to complete this topic Hepatitis A Vaccines Aged Out No long er eligible based on patient's age to complete this topic IPV Vaccines Aged Out No longer eligi ble based on patient's age to complete this topic MMR Vaccines Aged Out No longer eligi ble based on patient's age to complete this topic Meningococcal ACWY Vaccine Aged Out N o longer eligible based on patient's age to complete this topic Meningococcal B Vacine Aged Out No lo nger eligible based on patient's age to complete this topic RSV Immunization Patients Under 20 months Aged Out No longer eligible based on patient's age to complete this topic Varicella Vaccines Aged Out No longer eligible based on patient's age to complete this topic Procedures Procedure Name Priority Date/Time Associated Diagnosis Comments TISSUE EXAM Routine 07/18/2024 1:48 PM EST Lipoma of right upper extremity MR BREAST WO AND W CONTRAST BILAT Routine 07/05/2024 2:39 PM EST At high risk for breast cancer CBC WITH AUTO DIFFERENTIAL Routine 06/28/2024 10:33 AM EST Cold intolerance IRON AND TIBC Routine 06/28/2024 10:33 AM EST Cold intolerance FERRITIN Routine 06/28/2024 10:33 AM EST Cold intolerance VITAMIN B12 Routine 06/28/2024 10:33 AM EST Cold intolerance THYROID STIMULATING HORMONE WITH REFLEX TO FREE T4 AND FREE T3 Routine 06/28/2024 10:33 AM EST Cold intolerance Underweight (BMI < 18.5) COMPREHENSIVE METABOLIC PANEL Routine 06/28/2024 10:33 AM EST Cold intolerance CBC AND DIFFERENTIAL Routine 06/28/2024 10:33 AM EST Cold intolerance LIPID PANEL WITH REFLEX TO DIRECT LDL Routine 06/28/2024 10:33 AM EST Screening for metabolic disorder MG MAMMO DIGITAL SCREENING W SHOAIB BILAT Routine 05/02/2024 10:13 AM EST Encounter for screening mammogram for breast cancer HM DEPRESSION SCREENING Routine 01/08/2024 HM HPV Routine 04/25/2023 HEPATITIS C SCREENING Routine 03/07/2018 HIV SCREENING Routine 03/07/2018 from Last 3 Months or Most Recently Relevant to Health Maintenance Results * Tissue exam (07/18/2024 1:48 PM EST) Final Diagnosis Soft tissue, right upper arm-excision: -LIPOMA 07/22/2024 1:45 PM EST [facility] Clinical Information Lipoma right upper extremity D17.21 Right upper extremity lipoma 07/22/2024 1:45 PM EST [facility] Gross Description A. Arm, Right, upper excision: Labeled arm R . Received in formalin is a 4.2 x 2.6 x 1.3 cm focally disrupted yellow lobular portion of adipose tissue. The cut surfaces are comprised of glistening yellow lobular adipose tissue with no areas of hemorrhage or necrosis. Vending Route Driver sections are submitted in one cassette, four pieces. SHASHI 07/22/2024 1:45 PM EST [facility] Disclaimer Unless otherwise specified, all tissue is 10% NB formalin fixed and paraffin embedded. 07/22/2024 1:45 PM EST [facility] Tissue Structure of right upper limb / Unknown Non-blood Collection / Unknown 07/18/2024 1:48 PM EST 07/18/2024 1:50 PM EST Comment:Right upper extremit y lipoma us Kamlesh Fernandez DO LAB PATHOLOGY ORDERABLES Final Result [facility] [address] [place] [address], [place] [phone] * MR Breast wo and w Contrast bilat (07/05/2024 2:39 PM EST) Anatomical Region Laterality Modality Breast Bilateral Magnetic Resonan ce 07/05/2024 6:34 PM EST Impressions 07/07/2024 3:06 PM EST Limited exam as described above. ??No MRI evidence of breast malignancy. BI-RADS CATEGORY: 2 - BENIGN RECOMMENDATION: MRI of bilateral breasts is recommended in 1 year. POS -[id number] -------- FINAL REPORT -------- Dictated By: Jessenia Murphy Dictated Date: 07/05/2024 18:34 ET Assigned Physician: Jessenia Murphy Reviewed and Electronically Signed By: Jessenia Murphy Signed Date: 07/07/2024 15:06 ET Workstation ID: [id number] Transcribed By: Self Edit Transcribed Date: 07/05/2024 [...] on CAD workstation with enhancement curves plotting, [id number] reformatted and angiographic MIP images obtained. FINDINGS: [...] breasts is recommended in 1 year. POS -[id number] -------- FINAL REPORT -------- Dictated By: Jessenia Murphy Dictated Date: 07/05/2024 18:34 ET Assigned Physician: Jessenia Murphy Reviewed and Electronically Signed By: Jessenia Murphy Signed Date: 07/07/2024 15:06 ET Workstation ID: [id number] Transcribed By: Self Edit Transcribed Date: 07/05/2024 19:03 ET us Sofie Carr MD IMShelley MRI PROCEDUR ES Final Result * Thyroid stimulating hormone with reflex to free t4 and free t3 (06/28/2024 10:33 AM EST) TSH 2.76 0.40 - 4.00 mcIU/mL LAB CHEMISTRY METHOD 06/28/2024 2:11 PM EST [facility] Blood Venous blood specimen / Unknown Venipuncture / Unknown 06/28/2024 10:33 AM EST 06/28/2024 10:33 AM EST Sofie Carr MD LAB BLOOD ORDERA BLES Final Result [facility] [address] [place] [address], [place] [phone] * (ABNORMAL) Lipid panel with reflex to direct LDL (06/28/2024 10:33 AM EST) Cholesterol 198 0 - 200 mg/dL LAB CHEMISTRY METHOD 06/28/2024 3:56 PM EST [facility] Triglycerides 63 0 - 150 mg/dL LAB CHEMISTRY METHOD 06/28/2024 3:56 PM EST [facility] HDL 81 >=40 mg/dL LAB CHEMISTRY METHOD 06/28/2024 3:56 PM EST [facility] LDL Calculated 104(H) 0 - 100 mg/dL LAB CHEMISTRY METHOD 06/28/2024 3:56 PM EST [facility] VLDL Cholesterol Gordo 12.6 mg/dL LAB CHEMISTRY METHOD 06/28/2024 3:56 PM EST [facility] Non HDL Chol. (LDL+VLDL) 117 <145 mg/dL LAB CHEMISTRY METHOD 06/28/2024 3:56 PM EST [facility] Chol/HDL Ratio 2.4 0.0 - 4.4 LAB CHEMISTRY METHOD 06/28/2024 3:56 PM [facility] Blood Venous blood specimen / Unknown Venipuncture / Unknown 06/28/2024 10:33 AM EST 06/28/2024 10:33 AM EST Sofie Carr MD LAB BLOOD ORDERA BLES Final Result [facility] [address] [place] [address], [place] [phone] * (ABNORMAL) CBC auto differential (06/28/2024 10:33 AM EST) [facility] Signature WBC 3.5(L) 4.8 - 10.8 K/mcL LAB HEMETOLOGY METHOD 06/28/2024 12:32 PM [facility] RBC 3.80 3.80 - 4.80 M/mcL LAB HEMETOLOGY METHOD 06/28/2024 12:32 PM [facility] Hemoglobin 12.2 11.5 - 16.0 g/dL LAB HEMETOLOGY METHOD 06/28/2024 12:32 PM [facility] Hematocrit 36.9 35.0 - 47.0 % LAB HEMETOLOGY METHOD 06/28/2024 12:32 PM [facility] MCV 97.4 79.0 - 98.0 FL LAB HEMETOLOGY METHOD 06/28/2024 12:32 PM [facility] MCH 32.2(H) 27.0 - 32.0 pcg LAB HEMETOLOGY METHOD 06/28/2024 12:32 PM [facility] MCHC 33.1 32.0 - 37.0 g/dL LAB HEMETOLOGY METHOD 06/28/2024 12:32 PM [facility] RDW 12.3 11.0 - 15.0 % LAB HEMETOLOGY METHOD 06/28/2024 12:32 PM [facility] Platelets 215 130 - 400 K/mcL LAB HEMETOLOGY METHOD 06/28/2024 12:32 PM [facility] MPV 10.1 7.0 - 11.0 FL LAB HEMETOLOGY METHOD 06/28/2024 12:32 PM [facility] NRBC 0.0 <1.0 % LAB HEMETOLOGY METHOD 06/28/2024 12:32 PM [facility] NRBC Absolute 0.00 <0.10 K/mcL LAB HEMETOLOGY METHOD 06/28/2024 12:32 PM [facility] Neutrophils Relative 28.4 % LAB HEMETOLOGY METHOD 06/28/2024 12:32 PM [facility] Lymphocytes Relative 47.7 % LAB HEMETOLOGY METHOD 06/28/2024 12:32 PM [facility] Monocytes Relative 10.1 % LAB HEMETOLOGY METHOD 06/28/2024 12:32 PM [facility] Eosinophils Relative 11.8 % LAB HEMETOLOGY METHOD 06/28/2024 12:32 PM [facility] Basophils Relative 1.7 % LAB HEMETOLOGY METHOD 06/28/2024 12:32 PM [facility] Immature Granulocytes Relative 0.3 % LAB HEMETOLOGY METHOD 06/28/2024 12:32 PM [facility] Neutrophils Absolute 0.98(L) 1.50 - 7.00 K/mcL LAB HEMETOLOGY METHOD 06/28/2024 12:32 PM [facility] Lymphocytes Absolute 1.65 1.00 - 5.00 K/mcL LAB HEMETOLOGY METHOD 06/28/2024 12:32 PM [facility] Monocytes Absolute 0.35 0.20 - 1.00 K/mcL LAB HEMETOLOGY METHOD 06/28/2024 12:32 PM [facility] Eosinophils Absolute 0.41 0.00 - 0.50 K/mcL LAB HEMETOLOGY METHOD 06/28/2024 12:32 PM [facility] Basophils Absolute 0.06 0.00 - 0.20 K/mcL LAB HEMETOLOGY METHOD 06/28/2024 12:32 PM [facility] Immature Granulocytes Absolute 0.01 0.00 - 0.03 K/mcL LAB HEMETOLOGY METHOD 06/28/2024 12:32 PM [facility] Blood Venous blood specimen / Unknown Venipuncture / Unknown 06/28/2024 10:33 AM EST 06/28/2024 10:33 AM EST us Sofie Carr MD LAB BLOOD ORDERA BLES Final Result Performing Organization Address [facility]/ZIP Co de Phone Number [facility] [address] [place] [address], [place] [phone] * Iron and TIBC (06/28/2024 10:33 AM EST) Iron 102 40 - 150 mcg/dL LAB CHEMISTRY METHOD 06/28/2024 3:42 PM EST [facility] TIBC 258 250 - 450 mcg/dL LAB CHEMISTRY METHOD 06/28/2024 3:42 PM EST [facility] Iron Saturation 40 15 - 50 % LAB CHEMISTRY METHOD 06/28/2024 3:42 PM EST [facility] Blood Venous blood specimen / Unknown Venipuncture / Unknown 06/28/2024 10:33 AM EST 06/28/2024 10:33 AM EST us Sofie Carr MD LAB BLOOD ORDERA BLES Final Result Performing Organization Address [facility]/ZIP Co de Phone Number [facility] [address] [place] [address], [place] [phone] * Ferritin (06/28/2024 10:33 AM EST) Ferritin 71 8 - 252 ng/mL LAB CHEMISTRY METHOD 06/28/2024 3:42 PM EST [facility] Blood Venous blood specimen / Unknown Venipuncture / Unknown 06/28/2024 10:33 AM EST 06/28/2024 10:33 AM EST us Sofie Carr MD LAB BLOOD ORDERA BLES Final Result [facility] [address] [place] [address], [place] [phone] * Vitamin B12 (06/28/2024 10:33 AM EST) Pathologist [facility] Vitamin B-12 736 250 - 900 pcg/mL LAB CHEMISTRY METHOD 06/28/2024 3:42 PM [facility] Blood Venous blood specimen / Unknown Venipuncture / Unknown 06/28/2024 10:33 AM EST 06/28/2024 10:33 AM EST Sofie Carr MD LAB BLOOD ORDERA BLES Final Result Performing Organization Address City/[facility]/ZIP Co de Phone Number [facility] [address] [place] [address], [place] [phone] * (ABNORMAL) Comprehensive metabolic panel (06/28/2024 10:33 AM EST) [facility] Sodium 139 133 - 145 mmol/L LAB CHEMISTRY METHOD 06/28/2024 3:42 PM [facility] Potassium 4.1 3.5 - 5.5 mmol/L LAB CHEMISTRY METHOD 06/28/2024 3:42 PM [facility] Chloride 105 96 - 110 mmol/L LAB CHEMISTRY METHOD 06/28/2024 3:42 PM [facility] CO2 28 21 - 32 mmol/L LAB CHEMISTRY METHOD 06/28/2024 3:42 PM [facility] Anion Gap 6 3 - 11 LAB CHEMISTRY METHOD 06/28/2024 3:42 PM [facility] Glucose 92 70 - 100 mg/dL LAB CHEMISTRY METHOD 06/28/2024 3:42 PM [facility] BUN 20 5 - 25 mg/dL LAB CHEMISTRY METHOD 06/28/2024 3:42 PM [facility] Creatinine 0.91 0.50 - 1.10 mg/dL LAB CHEMISTRY METHOD 06/28/2024 3:42 PM [facility] eGFR 77 >=60 mL/min/1. 73m2 LAB CHEMISTRY METHOD 06/28/2024 3:42 PM [facility] Comment:Calculation based on the??Chronic Kidney Disease Epidemiology Collaboration (CKD-EPI) equation refit??without adjustment for race. BUN/Creatinine Ratio 22.0 LAB CHEMISTRY METHOD 06/28/2024 3:42 PM [facility] Calcium 9.4 8.5 - 10.5 mg/dL LAB CHEMISTRY METHOD 06/28/2024 3:42 PM [facility] AST (SGOT) 17 10 - 42 unit/L LAB CHEMISTRY METHOD 06/28/2024 3:42 PM [facility] ALT (SGPT) 25 10 - 60 unit/L LAB CHEMISTRY METHOD 06/28/2024 3:42 PM [facility] Alkaline Phosphatase 38(L) 42 - 121 unit/L LAB CHEMISTRY METHOD 06/28/2024 3:42 PM [facility] Total Protein 6.7 6.0 - 8.0 g/dL LAB CHEMISTRY METHOD 06/28/2024 3:42 PM [facility] Albumin 4.3 3.2 - 5.0 g/dL LAB CHEMISTRY METHOD 06/28/2024 3:42 PM [facility] Total Bilirubin 0.3 0.0 - 1.4 mg/dL LAB CHEMISTRY METHOD 06/28/2024 3:42 PM [facility] Blood Venous blood specimen / Unknown Venipuncture / Unknown 06/28/2024 10:33 AM EST 06/28/2024 10:33 AM EST Sofie Carr MD LAB BLOOD ORDERA BLES Final Result [facility] [address] [place] [address], * MG Mammo Digital Screening w Shoaib bilat (05/02/2024 10:13 AM EST) Anatomical Region Laterality Modality Breast Bilateral Mammography 05/02/2024 12:3 7 PM EST Impressions 05/02/2024 12:40 PM EST No mammographic evidence of malignancy. ?? No suspicious interval change. A negative mammogram in the presence of a clinically suspicious palpable abnormality does not preclude the possibility of malignancy or alter the indications for biopsy. ASSESSMENT: ?? BI-RADS 1: NEGATIVE RECOMMENDATION(S): 1: Routine screening mammogram BILATERAL in 1 year. Extremely dense tissue. ??The patient should discuss the potential benefits of supplementary screening breast ultrasound with her provider. -------- FINAL REPORT -------- Dictated By: Arturo Connors Dictated Date: 05/02/2024 12:37 ET Assigned Physician: Arturo Connors Reviewed and Electronically Signed By: Arturo Connors Signed Date: 05/02/2024 12:40 ET Workstation ID: [id number] Transcribed By: Self Edit Transcribed Date: 05/02/2024 12:37 ET Narrative 05/02/2024 12:40 PM EST EXAM: ??SCREENING MAMMOGRAPHY, BILATERAL HISTORY: ??SCREENING. ??Family history of breast cancer, aunt COMPARISON: ??05/01/2023, 04/27/2022, 04/23/2021 TECHNIQUE: Synthesized CC and MLO projections of each breast. ??Tomosynthesis of each breast in the CC and MLO projections. ADDITIONAL IMAGING: None Computer-aided detection was employed with the iCAD ??profound AI 3-D. TISSUE DENSITY: The breasts are extremely dense, which lowers the sensitivity of mammography. (BI-RADS category D) FINDINGS: There is nipple jewelry bilaterally. RIGHT BREAST: No suspicious mass. No suspicious calcification. No distortion. ?? No additional suspicious right breast findings LEFT BREAST: No suspicious mass. No suspicious calcification. No distortion. ?? No additional suspicious left breast findings Procedure Note Arturo Connors MD - 05/02/2024 EXAM: SCREENING MAMMOGRAPHY, BILATERAL HISTORY: SCREENING. Family history of breast cancer, aunt COMPARISON: 05/01/2023, 04/27/2022, 04/23/2021 TECHNIQUE: Synthesized CC and MLO projections of each breast.Tomosynthesis of each breast in the CC and MLO projections. ADDITIONAL IMAGING: None Computer-aided detection was employed with the [employer] AI 3-D. TISSUE DENSITY: The breasts are extremely dense, which lowers thesensitivity of mammography. (BI-RADS category D) FINDINGS: There is nipple jewelry bilaterally. RIGHT BREAST: No suspicious mass. No suspicious calcification. No distortion. Noadditional suspicious right breast findings LEFT BREAST: No suspicious mass. No suspicious calcification. No distortion. Noadditional suspicious left breast findings IMPRESSION: No mammographic evidence of malignancy. No suspicious interval change. A negative mammogram in the presence of a clinically suspicious palpableabnormality does not preclude the possibility of malignancy or alter theindications for biopsy. ASSESSMENT: BI-RADS 1: NEGATIVE RECOMMENDATION(S): 1: Routine screening mammogram BILATERAL in 1 year. Extremely dense tissue. The patient should discuss the potential benefitsof supplementary screening breast ultrasound with her provider. -------- FINAL REPORT -------- Dictated By: Arturo Connors Dictated Date: 05/02/2024 12:37 ET Assigned Physician: Arturo Connors Reviewed and Electronically Signed By: Arturo Connors Signed Date: 05/02/2024 12:40 ET Workstation ID: [id number] Transcribed By: Self Edit Transcribed Date: 05/02/2024 12:37 ET Mine [facility] BI PROCEDURES Final Re sult * Depression Screening (01/08/2024) Pathologist [facility] Depression Screening Abstracted Historical Provider HEALTH MAINTENANCE Final Result * Cervical Cancer Screening: HPV (04/25/2023) Pathologist [facility] Cervical Cancer Screening: HPV Negative, Abstracted Historical Provider HEALTH MAINTENANCE Final Result * HIV Screening (03/07/2018) HIV Screening Abstracted Historical Provider HEALTH MAINTENANCE Final Result * Hepatitis C Screening (03/07/2018) Hepatitis C Screening Abstracted Historical Provider HEALTH MAINTENANCE Final Result from Last 3 Months or Most Recently Relevant to Health Maintenance Insurance [facility] [phone] Care Teams Retail Field Supervisor Relationship Specialty Start Date End Date Sofie Carr MD [address] [place] [id number] PCP - General Internal Medicine 06/24/24
--- OUTSIDE RECORDS SUMMARY | 2024-08-01 14:16 | XMS_ITS | Clinical Summary ---
Author Organization Formerly [facility] Address [address] [place] [address] Care Team Providers Care Director Client Name Role Phone Unavailable Primary Care Provider Unavailabl e Allergies No known active allergies Medications No known medications Social History Tobacco Use Types Packs/Day Years Used Date Smoking Tobacco: Every Day Smokeless Tobacco: Never Sex and Gender Information Value Date Recorded Sex Assigned at Not on file Gender Identity Not on file Sexual Orientation Not on file Last Filed Vital Signs Vital Sign Reading Time Taken Comments Blood Pressure 128/84 04/30/2020 12:45 PM EST Pulse 64 04/30/2020 12:45 PM EST Temperature 36.9 ??C (98.5 ??F) 04/30/2020 12:[address] Respiratory Rate - - Oxygen Saturation 100% 04/30/2020 12:45 PM EST Inhaled Oxygen Concentration - - Weight 59 kg (130 lb) 04/30/2020 12:45 PM EST Height 171.5 cm (5' 7.5 ) 04/30/2020 12:45 PM ES T Body Mass Index 20.06 04/30/2020 12:45 PM EST Plan of Treatment Health Maintenance Due Date Last Done Comments Hepatitis C Virus Screening 1975 HIV Screening 1988 DTaP/Tdap/Td Vaccines (1 - Tdap) 1994 Hepatitis B Vaccines (1 of 3 - 19+ 3-dose series) 1994 Pap Smear (Ages 21-65) 1996 Mammogram 2015 Colonoscopy 2020 Influenza Vaccine 01/11/2024 COVID-19 Vaccine (1 - 2023-2 5 season) 2024 Pneumococcal Vaccine: Pediat lay (0-5 Years) and At-Risk Patients (6 to 49 Years) Aged Out No longer eligible b ased on patient's age to complete this topic
--- OUTSIDE RECORDS SUMMARY | 2024-08-01 14:16 | XMS_ITS | Clinical Summary ---
Author Organization [facility] Address [address] [place] [address] Care Team Providers Care Play Reader Name Role Phone Mine Anderson PA-C Primary Care Provider U sharath Allergies Active Allergy Reactions Criticality Noted Date Comments Seasonal 04/19/2021 Medications Medication Sig Dispensed Refills Start Date End Date Status fluticasone (FLONASE) 50 MCG/ACT nasal spray spray/apply 1 spray in each nostril daily. 0 Active traZODone (DESYREL) 100 MG tablet Take 100 mg by mouth every night at bedtime. 2 100 mg Tab at night 0 Active cariprazine HCl (Vraylar) 3 MG capsule Take 3 mg by mouth daily. 0 Active ALPRAZolam (XANAX) 0.5 MG tablet Take 0.5 mg by mouth every night at bedtime as needed for sleep. 0 Active lamoTRIgine (LaMICtal) 200 MG tablet Take 200 mg by mouth daily. 250 mg daily 0 Active Active Problems Problem Noted Date Diagnosed Date Bipolar affective disorder in remission 05/08/20 21 Macrocytosis without anemia 04/19/2021 Migraine 02/02/2021 Overview: Ubrevly prescribed by psychiatry Generalized anxiety disorder 07/07/2020 Tobacco use 11/29/2019 Family History Medical History Relation Name Comments Bladder Cancer Father Heart attack Father Breast cancer Maternal Aunt 1 Breast cancer Maternal Aunt 2 No Sig Med Hx Mother Relation Name Status Comments Father Alive Maternal Aunt 1 Alive Maternal Aunt 2 Alive Mother Alive Social History Tobacco Use Types Packs/Day Years Used Date Smoking Tobacco: Every Day Cigarettes 0.5 Smokeless Tobacco: Never Alcohol Use Standard Drinks/Week Comments Yes 28 (1 standard drink = 0.6 oz pure alcohol) Previous 4+ drinks daily. Recently cut down to occasional alcohol Sex and Gender Information Value Date Recorded Sex Assigned at Female 04/01/2021 9:34 AM EDT Gender Identity Not on file Sexual Orientation Not on file Job Start Date Occupation Industry Not on file Not on file Not on file Last Filed Vital Signs Vital Sign Reading Time Taken Comments Blood Pressure 95/65 04/19/2021 3:13 PM EST Pulse 69 04/19/2021 3:13 PM EST Temperature 36.9 ??C (98.5 ??F) 04/19/2021 3:13 PM ES T Respiratory Rate - - Oxygen Saturation 97% 04/19/2021 3:13 PM EST Inhaled Oxygen Concentration - - Weight - - Height - - Body Mass Index - - Plan of Treatment Health Maintenance Due Date Last Done Comments Hepatitis B Vaccines (1 of 3 - 3-dose series) 1975 Hepatitis C Screening 1975 COVID-19 Vaccine (#1) 1975 Pneumococcal Vaccine (1 of 2 - PCV) 1981 Depression Screening 1987 Preventative Health Evaluation 1993 Cervical Cancer Screening (Pap Smear) 1996 Colon Cancer Screening (Colonoscopy) 2020 Influenza Vaccine (#1) 2024 0, 03/04/2020 DTap / Tdap / Td (2 - Td or Tdap) 03/07/2028 03/07/2018 RSV Ped < 20 months Aged Out No longe r eligible based on patient's age to complete this topic Care Teams Play Reader Relationship Specialty Start Date End Date Mine Anderson PA-C PCP - General 04/05/21
== END 2024-08-01 14:21 | disposition home or self-care (01) ==
PROVIDERS: PCP Internal Medicine; Visit Provider Nurse Practitioner Family
DX: R51.9 Headache, unspecified (principal); U09.9 Post COVID-19 condition, unspecified; G89.29 Other chronic pain; R42 Dizziness and giddiness; G43.009 Migraine without aura, not intractable, without status migrainosus
CPT/HCPCS: 99214

== ENCOUNTER → 2024-08-01 13:21 | Outpatient (BNVA) | payer OTHER, SELFPAY | PROVIDERS: PCP Internal Medicine; Visit Provider Nurse Practitioner Family | DX: R51.9 Headache, unspecified (principal); U09.9 Post COVID-19 condition, unspecified; R42 Dizziness and giddiness; G43.009 Migraine without aura, not intractable, without status migrainosus; G89.29 Other chronic pain | CPT/HCPCS: 99212 ==